=== PATIENT | male | born 1970 | race Caucasian/White ===

== ENCOUNTER 2018-03-03 06:13 | Inpatient (IN) | payer OTHER ==
[2018-03-03] MEDS: HYDROmorphONE 1 MG/ML SYG IV (06:35)
[2018-03-03] MEDS: ONDANSETRON 4 MG INJ IV (06:35)
[2018-03-03 07:44] LABS: ADD MAN DIFF? NO
[2018-03-03 07:46] LABS: BASOPHILS % 0.2 % (0.0-2.0); EOSINOPHILS # 0.1 10^3/ul (0.0-0.5); EOSINOPHILS % 0.8 % (0.0-7.0); HEMATOCRIT 46.9 % (42.0-52.0); HEMOGLOBIN 15.3 g/dl (14.0-18.0); LYMPHOCYTES # 1.2 10^3/ul (0.8-2.9); LYMPHOCYTES % 9.8 % (15.0-51.0); MEAN CORPUSCULAR HEMOGLOBIN 30.2 pg (29.0-33.0); MEAN CORPUSCULAR HGB CONC 32.6 g/dl (32.0-37.0); MEAN CORPUSCULAR VOLUME 92.7 fl (82.0-101.0); MEAN PLATELET VOLUME 9.3 fl (7.4-10.4); MONOCYTE # 1.1 10^3/ul (0.3-0.9); MONOCYTES % 9.2 % (0.0-11.0); NEUTROPHIL # 9.7 10^3/ul (1.6-7.5); NEUTROPHILS % 79.7 % (39.0-77.0); PLATELET COUNT 241 10^3/UL (140-415); RED BLOOD COUNT 5.06 10^6/ul (4.70-6.10)
[2018-03-03 07:46] LABS: WHITE BLOOD COUNT 12.1 10^3/ul (4.8-10.8)
[2018-03-03 08:13] LABS: ALANINE AMINOTRANSFERASE 39 IU/L (13-69); ALBUMIN 3.9 g/dl (3.3-4.9); ALBUMIN/GLOBULIN RATIO 1.39; ALKALINE PHOSPHATASE 133 IU/L (42-121); ANION GAP 11 (5-13); ASPARTATE AMINO TRANSFERASE 34 IU/L (15-46); BILIRUBIN,INDIRECT 0.4 mg/dl (0-1.1); BILIRUBIN,TOTAL 0.4 mg/dl (0.2-1.3); BLOOD UREA NITROGEN 12 mg/dl (7-20); CALCIUM 8.4 mg/dl (8.4-10.2); CARBON DIOXIDE 25 mmol/L (21-31); CHLORIDE 106 mmol/L (97-110); CREATININE 0.75 mg/dl (0.61-1.24); Estimated GFR > 60 mL/min (>60); GLUCOSE 127 mg/dl (70-220); LIPASE 1257 U/L (23-300); POTASSIUM 3.8 mmol/L (3.5-5.1); SODIUM 142 mmol/L (135-144); TOTAL PROTEIN 6.7 g/dl (6.1-8.1)
[2018-03-03] MEDS: LABETALOL HCL 20MG INJ IV ×3 (08:19→23:07)
[2018-03-03 08:24] LABS: TROPONIN-I < 0.012 ng/ml (0.000-0.120)
[2018-03-03] MEDS: HYDROmorphONE 2 MG/ML SYG IV (09:04)
[2018-03-03] MEDS ORDERED: ACETAMINOPHEN 325 MG TAB PO ×2 (09:30)
[2018-03-03] MEDS ORDERED: ONDANSETRON 4 MG INJ IV ×2 (09:30)
[2018-03-03] MEDS ORDERED: NACL 0.9% 3 ML SYG IV (09:30)
[2018-03-03] MEDS ORDERED: morphine 2 MG INJ IV (09:30)
[2018-03-03] MEDS ORDERED: HYDROCODONE/APAP (5/325) TAB PO (09:30)
[2018-03-03] MEDS ORDERED: LABETALOL HCL 20MG INJ IV (12:00)
[2018-03-03] MEDS: hydrALAzine 20 MG INJ IV ×2 (12:07→21:28)
[2018-03-03 13:08] LABS: HDL CHOLESTEROL 28 mg/dl (27-67); LDL CHOLESTEROL,CALCULATED 119 mg/dl; TRIGLYCERIDES 109 mg/dl (0-149)
[2018-03-03 13:08] LABS: CHOLESTEROL 169 mg/dl (100-200)
[2018-03-03 13:12] LABS: ETHANOL < 10.0 mg/dl
[2018-03-03 13:21] LABS: LACTIC ACID 1.5 mmol/L (0.5-2.0)
[2018-03-03] MEDS: SOD CHLORIDE 0.9% 1,000 ML IV ×4 (13:36→23:08)
[2018-03-03] MEDS: ENALAPRILAT 1.25 MG INJ IV (13:38)
[2018-03-03 19:45] LABS: ADD UMIC NO; UR ASCORBIC ACID NEGATIVE (NEGATIVE); UR BILIRUBIN (Dip) NEGATIVE (NEGATIVE); UR BLOOD (Dip) NEGATIVE (NEGATIVE); UR CLARITY CLEAR (CLEAR); UR COLOR YELLOW (YELLOW); UR GLUCOSE (Dip) NEGATIVE (NEGATIVE); UR KETONES (Dip) NEGATIVE (NEGATIVE); UR LEUKOCYTE ESTERASE (Dip) NEGATIVE Leu/ul (NEGATIVE); UR NITRITE (Dip) NEGATIVE (NEGATIVE); UR SPECIFIC GRAVITY (Dip) 1.019 (1.003-1.030); UR TOTAL PROTEIN (Dip) NEGATIVE (NEGATIVE); UR UROBILINOGEN (Dip) NEGATIVE (NEGATIVE)
[2018-03-03 20:14] LABS: BARBITURATES Negative (NEGATIVE); BENZODIAZEPINES Negative (NEGATIVE); CANNABINOIDS Negative (NEGATIVE); COCAINE Negative (NEGATIVE); OPIATES Negative (NEGATIVE)
[2018-03-03 20:18] LABS: AMPHETAMINE/METHAMPHETAMINE POSITIVE (NEGATIVE)
[2018-03-04] MEDS: SOD CHLORIDE 0.9% 1,000 ML IV ×3 (04:34→10:34)
[2018-03-04] MEDS: PANTOPRAZOLE 40 MG INJ IV (05:33)
[2018-03-04 05:46] LABS: ADD MAN DIFF? NO
[2018-03-04 05:58] LABS: WHITE BLOOD COUNT 10.3 10^3/ul (4.8-10.8)
[2018-03-04 05:58] LABS: BASOPHILS % 0.2 % (0.0-2.0); EOSINOPHILS # 0.2 10^3/ul (0.0-0.5); HEMOGLOBIN 13.4 g/dl (14.0-18.0); LYMPHOCYTES # 1.8 10^3/ul (0.8-2.9); LYMPHOCYTES % 17.8 % (15.0-51.0); MEAN CORPUSCULAR HEMOGLOBIN 30.7 pg (29.0-33.0); MEAN CORPUSCULAR HGB CONC 33.5 g/dl (32.0-37.0); MEAN CORPUSCULAR VOLUME 91.7 fl (82.0-101.0); MEAN PLATELET VOLUME 9.8 fl (7.4-10.4); MONOCYTE # 0.9 10^3/ul (0.3-0.9); MONOCYTES % 9.2 % (0.0-11.0); NEUTROPHIL # 7.2 10^3/ul (1.6-7.5); NEUTROPHILS % 70.3 % (39.0-77.0); PLATELET COUNT 244 10^3/UL (140-415); RED BLOOD COUNT 4.36 10^6/ul (4.70-6.10); RED CELL DISTRIBUTION WIDTH 13.5 % (11.5-14.5)
[2018-03-04 06:15] LABS: GAMMA GLUTAMYL TRANSPEPTIDASE 29 IU/L (0-50)
[2018-03-04 06:20] LABS: ALANINE AMINOTRANSFERASE 33 IU/L (13-69); ALBUMIN 3.2 g/dl (3.3-4.9); ALBUMIN/GLOBULIN RATIO 1.28; ALKALINE PHOSPHATASE 103 IU/L (42-121); ANION GAP 10 (5-13); ASPARTATE AMINO TRANSFERASE 21 IU/L (15-46); BILIRUBIN,INDIRECT 0.3 mg/dl (0-1.1); BILIRUBIN,TOTAL 0.3 mg/dl (0.2-1.3); BLOOD UREA NITROGEN 9 mg/dl (7-20); CALCIUM 7.6 mg/dl (8.4-10.2); CARBON DIOXIDE 25 mmol/L (21-31); CHLORIDE 106 mmol/L (97-110); CREATININE 0.59 mg/dl (0.61-1.24); Estimated GFR > 60 mL/min (>60); GLUCOSE 115 mg/dl (70-220); MAGNESIUM 1.7 mg/dl (1.7-2.5); POTASSIUM 3.3 mmol/L (3.5-5.1); SODIUM 141 mmol/L (135-144); TOTAL PROTEIN 5.7 g/dl (6.1-8.1)
[2018-03-04 09:34] LABS: LIPASE 84 U/L (23-300)
[2018-03-04] MEDS: POTASSIUM CHLORIDE 100 ML IVPB ×2 (10:34→12:32)
[2018-03-04] MEDS: AMLODIPINE 5 MG TAB PO (12:30)
[2018-03-04] MEDS: SOD CHLORIDE 0.45% 1,000 ML IV (12:32)
[2018-03-04] MEDS: hydrALAzine 20 MG INJ IV ×3 (12:33→23:53)
[2018-03-04] MEDS: LABETALOL HCL 20MG INJ IV (14:43)
[2018-03-04] MEDS: IOHEXOL 300MG/ML 150 ML BTL (15:18)
[2018-03-05] MEDS: PANTOPRAZOLE 40 MG INJ IV (05:22)
[2018-03-05 06:05] LABS: ADD MAN DIFF? NO
[2018-03-05 06:09] LABS: WHITE BLOOD COUNT 10.9 10^3/ul (4.8-10.8)
[2018-03-05 06:09] LABS: BASOPHILS % 0.2 % (0.0-2.0); EOSINOPHILS # 0.2 10^3/ul (0.0-0.5); EOSINOPHILS % 2.2 % (0.0-7.0); HEMATOCRIT 44.1 % (42.0-52.0); HEMOGLOBIN 14.3 g/dl (14.0-18.0); LYMPHOCYTES # 1.8 10^3/ul (0.8-2.9); LYMPHOCYTES % 16.5 % (15.0-51.0); MEAN CORPUSCULAR HEMOGLOBIN 30.2 pg (29.0-33.0); MEAN CORPUSCULAR HGB CONC 32.4 g/dl (32.0-37.0); MEAN CORPUSCULAR VOLUME 93.2 fl (82.0-101.0); MEAN PLATELET VOLUME 9.9 fl (7.4-10.4); MONOCYTES % 9.5 % (0.0-11.0); NEUTROPHIL # 7.7 10^3/ul (1.6-7.5); PLATELET COUNT 263 10^3/UL (140-415); RED BLOOD COUNT 4.73 10^6/ul (4.70-6.10); RED CELL DISTRIBUTION WIDTH 13.7 % (11.5-14.5)
[2018-03-05 06:37] LABS: ANION GAP 7 (5-13); BLOOD UREA NITROGEN 5 mg/dl (7-20); CALCIUM 8.8 mg/dl (8.4-10.2); CARBON DIOXIDE 30 mmol/L (21-31); CHLORIDE 103 mmol/L (97-110); Estimated GFR > 60 mL/min (>60); GLUCOSE 124 mg/dl (70-220); PHOSPHORUS 2.6 mg/dl (2.5-4.9); POTASSIUM 4.8 mmol/L (3.5-5.1); SODIUM 140 mmol/L (135-144)
[2018-03-05] MEDS: LABETALOL HCL 20MG INJ IV ×2 (07:31→12:02)
[2018-03-05] MEDS ORDERED: AMLODIPINE 10 MG TAB PO (09:00)
[2018-03-05] MEDS: NIFEdipine (XL) 60 MG TAB PO (10:17)
[2018-03-05] MEDS: hydrALAzine 20 MG INJ IV (10:22)
== END 2018-03-05 14:30 | disposition home or self-care (01) | DRG 439 ==
LOC: E/R 06:13 → PP2 09:19 → 6WM 17:00
DX: K85.90 Acute pancreatitis without necrosis or infection, unspecified (principal); K56.609 Unspecified intestinal obstruction, unspecified as to partial versus complete obstruction; F15.90 Other stimulant use, unspecified, uncomplicated; I16.0 Hypertensive urgency; E66.9 Obesity, unspecified; Z68.37 Body mass index [BMI] 37.0-37.9, adult; Z72.89 Other problems related to lifestyle; I10 Essential (primary) hypertension; K76.0 Fatty (change of) liver, not elsewhere classified; F11.90 Opioid use, unspecified, uncomplicated
CPT/HCPCS: 36415; 74176; 74250; 76705; 80048; 80053; 80061; 80307; 81003; 82977; 83605; 83690; 83735; 84100; 84484; 85025; 93005; 96374; 96375; 99285-25